=== PATIENT | male | born 1950 | race Caucasian/White ===

== ENCOUNTER → 2017-02-06 | Outpatient (CLI) | payer OTHER, SELFPAY ==
[~2017-02-06] VITALS: Ht 182.9 cm; Wt 125.6 kg
[2017-02-06 12:59] LABS: HEMOGLOBIN 9.5 gm/dl (14.0-17.5); RED BLOOD COUNT 4.17 M/UL (4.20-5.50); WHITE BLOOD COUNT 7.6 K/UL (4.5-11.0)
[2017-02-06 13:21] LABS: BUN/CREATININE RATIO 20 (0-10)
== END ==
LOC: OPSV 12:09 → CT 14:00
PROVIDERS: Nurse Practitioner
DX: R05 Cough (principal); D64.9 Anemia, unspecified; R06.02 Shortness of breath; J18.9 Pneumonia, unspecified organism; R91.8 Other nonspecific abnormal finding of lung field
CPT/HCPCS: 71260; 80048; 85025; 96374; J2930; J7050; Q9962

== ENCOUNTER 2017-02-23 | Emergency (ER) | payer OTHER, SELFPAY ==
[2017-02-23 07:49] LABS: HEMOGLOBIN 8.7 gm/dl (14.0-17.5); RED BLOOD COUNT 3.9 M/UL (4.20-5.50)
== END 2017-02-23 10:30 | disposition home or self-care (01) ==
LOC: ER1
PROVIDERS: Physician Assistant
DX: J40 Bronchitis, not specified as acute or chronic (principal); D64.9 Anemia, unspecified; E11.9 Type 2 diabetes mellitus without complications; I10 Essential (primary) hypertension; Z91.041 Radiographic dye allergy status; Z90.49 Acquired absence of other specified parts of digestive tract; Z79.84 Long term (current) use of oral hypoglycemic drugs; Z79.82 Long term (current) use of aspirin; Z79.899 Other long term (current) drug therapy
CPT/HCPCS: 36415; 71020; 80053; 82550; 82553; 83874; 83880; 84484; 85025; 93005; 99284

== ENCOUNTER → 2017-03-17 | Outpatient (CLI) | payer OTHER, SELFPAY | LOC: NM 09:00 | DX: I25.5 Ischemic cardiomyopathy (principal); R06.09 Other forms of dyspnea; I44.7 Left bundle-branch block, unspecified; Z95.1 Presence of aortocoronary bypass graft; R93.1 Abnormal findings on diagnostic imaging of heart and coronary circulation | CPT/HCPCS: 78472; A9512 ==

== ENCOUNTER → 2020-11-06 | Outpatient (CLI) | payer OTHER, SELFPAY ==
[~2020-11-06] MED LIST: ACETYLCYSTEINE PO; ALBUTEROL2.5 MG/3 M INH; ASPIRIN 325MG325 MG PO; ATORVASTATIN CA40 MG PO; AZITHROMYCIN250 MG PO; CARVEDILOL12.5 MG PO; CARVEDILOL25 MG PO; CLOPIDOGREL75 MG PO; COZAAR25 MG PO; CRANBERRY400 M1 PO; CRANBERRY500 M3 PO; EUTHYROX175 MCG PO; FINASTERIDE5 MG PO; FISH OIL 1,2001 EAC2 PO; FISH OIL 500 M1 EAC1 PO; FLOMAX0.4 MG PO; FUROSEMIDE40 MG PO; GABAPENTIN300 MG PO; GLUCOPHAGE1000 MG PO; HYPER-SAL4 M1 INH; IMDUR ER TAB 6060 MG PO; IRON PO; ISOSORBIDE MONO60 MG PO; K-DUR TAB 20 M20 MEQ PO; LASIX40 MG PO; LEVAQUIN500 MG PO; LIPITOR TAB 2020 MG PO; LOSARTAN POTASS25 MG PO; NEURONTIN 300300 MG PO; NIACIN ER500 MG PO; NORVASC10 MG PO; NOVOLIN N100 UNIT/1 SC; NOVOLIN SQ; PLAVIX75 MG PO; POTASSIUM CHLO20 ME1 PO; PREDNISONE PO; PREDNISONE20 MG PO; PROSCAR5 MG PO; PROTONIX40 MG PO; SODIUM CHLORIDE INH; SYNTHROID175 MCG PO; TAMSULOSIN HCL0.4 MG PO; TYLENOL W/CODEIN1 E1 PO; ULTRAM50 MG PO; VIT C PO; VITAMIN B-12500 MC2 PO; VITAMIN C 500500 MG PO; ZITHROMAX250 MG PO; ZYLOPRIM 100 M100 MG PO
== END ==
LOC: HEART 5 07:52
DX: I25.119 Atherosclerotic heart disease of native coronary artery with unspecified angina pectoris (principal)
CPT/HCPCS: 78452; A9502; J2785

== ENCOUNTER → 2021-01-01 | Outpatient (CLI) | payer OTHER, SELFPAY ==
[2021-01-01 12:06] LABS: HEMOGLOBIN 12.1 gm/dl (14.0-17.5); RED BLOOD COUNT 4.39 M/UL (4.20-5.50); WHITE BLOOD COUNT 6.5 K/UL (4.5-11.0)
== END ==
LOC: OPSV2 10:30
PROVIDERS: Anesthesiology
DX: Z01.818 Encounter for other preprocedural examination (principal); R94.31 Abnormal electrocardiogram [ECG] [EKG]; K64.9 Unspecified hemorrhoids
CPT/HCPCS: 36415; 80048; 85025; 93005

== ENCOUNTER → 2021-01-11 | Outpatient (CLI) | payer OTHER, SELFPAY ==
[2021-01-11 12:15] LABS: HEMOGLOBIN 12.6 gm/dl (14.0-17.5); RED BLOOD COUNT 4.44 M/UL (4.20-5.50); WHITE BLOOD COUNT 5.8 K/UL (4.5-11.0)
== END ==
LOC: LAB 10:54
PROVIDERS: Internal Medicine Cardiovascular Disease
DX: R94.39 Abnormal result of other cardiovascular function study (principal); I25.119 Atherosclerotic heart disease of native coronary artery with unspecified angina pectoris; I10 Essential (primary) hypertension; I25.5 Ischemic cardiomyopathy
CPT/HCPCS: 36415; 71046; 80048; 85025

== ENCOUNTER → 2021-01-15 | Outpatient (CLI) | payer OTHER, SELFPAY | LOC: CATH 07:43 | DX: I25.118 Atherosclerotic heart disease of native coronary artery with other forms of angina pectoris (principal); I25.82 Chronic total occlusion of coronary artery; I25.5 Ischemic cardiomyopathy; I11.0 Hypertensive heart disease with heart failure; I50.22 Chronic systolic (congestive) heart failure; I25.2 Old myocardial infarction; E11.9 Type 2 diabetes mellitus without complications; E78.00 Pure hypercholesterolemia, unspecified; E78.5 Hyperlipidemia, unspecified; E03.9 Hypothyroidism, unspecified; Z87.891 Personal history of nicotine dependence; E66.01 Morbid (severe) obesity due to excess calories; Z95.1 Presence of aortocoronary bypass graft; Z79.4 Long term (current) use of insulin; Z68.37 Body mass index [BMI] 37.0-37.9, adult; Z95.810 Presence of automatic (implantable) cardiac defibrillator; Z82.49 Family history of ischemic heart disease and other diseases of the circulatory system; Z79.899 Other long term (current) drug therapy | CPT/HCPCS: 82962; 99152; 99153; C1769; J0360; J1644; J2250; J2270; J3010; J7030; Q9965; Q9967 ==

== ENCOUNTER → 2021-09-27 | Outpatient (CLI) | payer OTHER | LOC: EXRD 09:22 | DX: K74.60 Unspecified cirrhosis of liver (principal); N28.1 Cyst of kidney, acquired | CPT/HCPCS: 76705 ==

== ENCOUNTER → 2021-11-27 | Outpatient (CLI) | payer MEDICARE | LOC: US 08:23 → EXRD 11-29 10:30 | DX: Z13.6 Encounter for screening for cardiovascular disorders (principal) | CPT/HCPCS: 76706 ==

== ENCOUNTER → 2021-12-26 | Outpatient (CLI) | payer OTHER | LOC: LAB 12:08 | DX: R06.02 Shortness of breath (principal); Z86.16 Personal history of COVID-19; J84.9 Interstitial pulmonary disease, unspecified | CPT/HCPCS: 36415; 71046; 83880; 85379 ==

== ENCOUNTER → 2021-12-27 | Outpatient (CLI) | payer OTHER | LOC: LAB 09:52 | PROVIDERS: Physician Assistant | DX: I50.9 Heart failure, unspecified (principal); R06.02 Shortness of breath | CPT/HCPCS: 80048 ==

== ENCOUNTER → 2022-01-01 | Outpatient (CLI) | payer OTHER | LOC: HEART 5 10:40 | DX: R06.02 Shortness of breath (principal); I27.20 Pulmonary hypertension, unspecified; I07.1 Rheumatic tricuspid insufficiency; Z86.16 Personal history of COVID-19; Z95.0 Presence of cardiac pacemaker | CPT/HCPCS: 93306 ==

== ENCOUNTER → 2022-01-16 | Outpatient (CLI) | payer OTHER | LOC: KOH-I 13:39 | DX: N18.9 Chronic kidney disease, unspecified (principal); N28.1 Cyst of kidney, acquired | CPT/HCPCS: 76775 ==

== ENCOUNTER 2022-02-03 10:37 | Emergency (ER) | payer OTHER ==
[2022-02-03 11:45] LABS: HEMOGLOBIN 12.4 gm/dl (14.0-17.5); RED BLOOD COUNT 4.34 M/UL (4.20-5.50); WHITE BLOOD COUNT 6.9 K/UL (4.5-11.0)
[2022-02-03] MEDS ORDERED: CEPHALEXIN500 MG PO (14:21)
[2022-02-03] MEDS ORDERED: MEDROL4 MG PO (14:21)
[2022-02-03] MEDS ORDERED: HYDROCODON-ACE1 EAC2 PO (14:36)
== END 2022-02-03 16:10 | disposition home or self-care (01) ==
LOC: ER1 10:37
PROVIDERS: Emergency Medicine
DX: M10.9 Gout, unspecified (principal); E11.22 Type 2 diabetes mellitus with diabetic chronic kidney disease; N18.9 Chronic kidney disease, unspecified; Z79.4 Long term (current) use of insulin; Z95.1 Presence of aortocoronary bypass graft; Z91.041 Radiographic dye allergy status
CPT/HCPCS: 73630; 80053; 84550; 85025; 85652; 86140; 96374; 96375; 99283; J2270; J2405

== ENCOUNTER → 2022-05-06 | Outpatient (CLI) | payer OTHER, MEDICARE ==
[~2022-05-06] MED LIST changes: +CEPHALEXIN500 MG PO; +HYDROCODON-ACE1 EAC2 PO; +MEDROL4 MG PO
[2022-05-07 10:14] LABS: CREATININE, URINE 79.8 mg/dL (Not Estab.)
== END ==
LOC: LAB 09:30
PROVIDERS: Internal Medicine Nephrology
DX: N18.9 Chronic kidney disease, unspecified (principal)
CPT/HCPCS: 80053; 81001; 82043; 82570; 84156

== ENCOUNTER → 2022-05-26 | Outpatient (CLI) | payer OTHER, MEDICARE | LOC: US 10:08 → RAD 10:08 → EDSTATUS 12:28 | DX: N18.9 Chronic kidney disease, unspecified (principal) ==

== ENCOUNTER → 2022-07-01 | Outpatient (CLI) | payer MEDICARE | LOC: NM 06-24 13:00 → US 06-26 09:15 → NM 06-26 10:00 → US 08:30 | DX: K74.69 Other cirrhosis of liver (principal); R16.1 Splenomegaly, not elsewhere classified | CPT/HCPCS: 76700 ==

== ENCOUNTER → 2022-07-11 | Outpatient (CLI) | payer OTHER | LOC: NM 07:16 | DX: R06.02 Shortness of breath (principal); I20.8 Other forms of angina pectoris; M10.9 Gout, unspecified | CPT/HCPCS: 78452; 93017; A9502; J2785 ==